=== PATIENT | male | born 1970 | race Caucasian/White ===

== ENCOUNTER 2019-06-07 18:26 | Emergency (ER) | payer BC ==
[2019-06-07 18:42] VITALS: BP 133/82
--- NOTE | 2019-06-07 18:52 | UC ---
Throat Pain/Nasal John HPI - HPI Summary HPI Summary: 49 yo male presents with cold symptoms. He tells me that for about 1 week he has had sinus congestion and b/l ears clogged. He has been taking mucinex and cold medication OTC and feels his symptoms are improving, however over the last 2-3 days he has noticed increased intermittent pain and popping to his right ear that concerned him. He had a lot of ear infections as a child and had ear tubes as well. Denies fever, chills, sore throat, cough, rash, headache. - History of Current Complaint Chief Complaint: UCGeneralIllness Stated Complaint: COLD SYMPTOMS, PLUGGED EARS Time Seen by Provider: 06/07/19 18:51 Hx Obtained From: Patient Onset/Duration: Gradual Onset Pain Intensity: 0 - Allergies/Home Medications Allergies/Adverse Reactions: Allergies Allergy/AdvReac Type Severity Reaction Status Date / Time moxifloxacin [From Avelox] Allergy Palpitation Verified 06/07/19 18:42 s Home Medications: Home Medications Cetirizine HCl [Zyrtec] 10 mg PO 06/07/19 [History] Lisinopril TAB* [Prinivil TAB*] 10 mg PO DAILY 06/07/19 [History Confirmed 06/07] guaiFENesin [Mucinex] 600 mg PO 06/07/19 [History] PMH/Surg Hx/FS Hx/Imm Hx Cardiovascular History: Hypertension - Surgical History Surgical History: None - Family History Known Family History: Positive: Non-Contributory - Social History Occupation: Employed Full-time Lives: With Family Alcohol Use: None Substance Use Type: None Smoking Status (MU): Never Smoked Tobacco Review of Systems All Other Systems Reviewed And Are Negative: No Constitutional: Positive: Negative Skin: Positive: Negative Eyes: Positive: Negative ENT: Positive: Ear Ache, Sinus Congestion Respiratory: Positive: Negative Cardiovascular: Positive: Negative Gastrointestinal: Positive: Negative Neurovascular: Positive: Negative Neurological: Positive: Negative Psychological: Positive: Negative Physical Exam - Summary Physical Exam Summary: GENERAL: NAD. WDWN. No pain distress. SKIN: No rashes, sores, lesions, or open wounds. HEENT: Head: AT/NC Eyes: EOM intact. Conjunctiva clear without inflammation or discharge. Ears: Hearing grossly normal. LEFT EAR: TM with two 2mm circular areas of TM ?bulging that look like bubbles in appearance with clear fluid within. Canal without erythema, edema, or drainage. RIGHT EAR: TM with similar appearing lesions except with garry colored fluid within. Canal without erythema , edema, or drainage. NTTP with auricular manipulation. No mastoid tenderness. Nose: Nasal mucosa pink and moist. NTTP maxillary and frontal sinus. Throat: Posterior oropharynx without exudates, erythema, or tonsillar enlargement. Uvula midline. NECK: Supple. Nontender. No lymphadenopathy. CHEST: CTAB. No r/r/w. No accessory muscle use. Breathing comfortably and in no distress. CV: RRR. Without m/r/g. Pulses intact. NEURO: Alert. PSYCH: Age appropriate behavior. Triage Information Reviewed: Yes Vital Signs: Initial Vital Signs Temp 99.1 F 06/07/19 18:37 Pulse 68 06/07/19 18:37 Resp 16 06/07/19 18:37 BP 133/82 06/07/19 18:37 Pulse Ox 99 06/07/19 18:37 Vital Signs Reviewed: Yes Throat Pain/Nasal Course/Dx - Course Course Of Treatment: Her exam findings could represent a normal variant of his TM scar tissue from years of ear infections vs a serous otitis media with ?infectious process. I discussed this with Dr. Otto and she agrees and favors a scar tissue variant of his TM. We agreed to cover for infectious process with Augmentin and have him f/u with ENT for further eval. Pt agreeable with plan - Differential Dx/Diagnosis Provider Diagnosis: Right ear pain Discharge ED - Sign-Out/Discharge Documenting (check all that apply): Patient Departure All imaging exams completed and their final reports reviewed: No Studies - Discharge Plan Condition: Stable Disposition: HOME Prescriptions: Amoxicillin/Clavulanate TAB* [Augmentin TAB 875*] 875 mg PO BID #14 tab Patient Education Materials: Ear Infection (ED), Serous Otitis Media (ED) Referrals: Lorne Downing MD [Medical Doctor] - As Soon As Possible No Primary Care Phys,NOPCP [Primary Care Provider] - Additional Instructions: If you develop a fever, shortness of breath, chest pain, new or worsening symptoms - please call your PCP or go to the ED immediately. - Billing Disposition and Condition Condition: STABLE Disposition: Home
== END 2019-06-07 19:34 | disposition home or self-care (01) ==
LOC: UCEAST 18:26
DX: H92.01 Otalgia, right ear (principal); I10 Essential (primary) hypertension
CPT/HCPCS: 99202; G0463